=== PATIENT | male | born 1965 | race Caucasian/White ===

== ENCOUNTER 2017-11-30 13:30 | Inpatient (IN) | payer MEDICAID ==
[2017-11-30] MEDS: HYDROCODONE/APAP (5/325) TAB PO (14:37)
[2017-11-30] MEDS: ASPIRIN 81 MG TAB PO (18:09)
[2017-11-30] MEDS: HYDROmorphONE 0.5 MG/0.5 ML SYG IV (18:10)
[2017-11-30 18:28] LABS: ADD MAN DIFF? NO
[2017-11-30 18:30] LABS: BASOPHIL # 0.1 10^3/ul (0.0-0.1); BASOPHILS % 0.5 % (0.0-2.0); EOSINOPHILS # 0.5 10^3/ul (0.0-0.5); EOSINOPHILS % 4.8 % (0.0-7.0); HEMATOCRIT 28.3 % (42.0-52.0); HEMOGLOBIN 9.7 g/dl (14.0-18.0); LYMPHOCYTES # 2.1 10^3/ul (0.8-2.9); LYMPHOCYTES % 19.6 % (15.0-51.0); MEAN CORPUSCULAR HEMOGLOBIN 28.3 pg (29.0-33.0); MEAN CORPUSCULAR HGB CONC 34.3 g/dl (32.0-37.0); MEAN CORPUSCULAR VOLUME 82.5 fl (82.0-101.0); MEAN PLATELET VOLUME 9.4 fl (7.4-10.4); MONOCYTE # 0.7 10^3/ul (0.3-0.9); MONOCYTES % 6.8 % (0.0-11.0); NEUTROPHIL # 7.2 10^3/ul (1.6-7.5); PLATELET COUNT 265 10^3/UL (140-415); RED BLOOD COUNT 3.43 10^6/ul (4.70-6.10); RED CELL DISTRIBUTION WIDTH 13.2 % (11.5-14.5)
[2017-11-30 18:30] LABS: WHITE BLOOD COUNT 10.5 10^3/ul (4.8-10.8)
[2017-11-30 18:47] LABS: ALANINE AMINOTRANSFERASE 17 IU/L (13-69); ALBUMIN 3.5 g/dl (3.3-4.9); ALBUMIN/GLOBULIN RATIO 1.06; ALKALINE PHOSPHATASE 108 IU/L (42-121); ANION GAP 19 (8-16); ASPARTATE AMINO TRANSFERASE 15 IU/L (15-46); BLOOD UREA NITROGEN 39 mg/dl (7-20); CALCIUM 8.6 mg/dl (8.4-10.2); CARBON DIOXIDE 21 mmol/L (21-31); CHLORIDE 103 mmol/L (97-110); CREATININE 3.31 mg/dl (0.61-1.24); GLUCOSE 176 mg/dl (70-220); POTASSIUM 4.9 mmol/L (3.5-5.1); SODIUM 138 mmol/L (135-144); TOTAL PROTEIN 6.8 g/dl (6.1-8.1)
[2017-11-30 19:00] LABS: TROPONIN-I < 0.012 ng/ml (0.00-0.12)
[2017-11-30] MEDS ORDERED: ONDANSETRON 4 MG INJ IV (20:00)
[2017-11-30] MEDS ORDERED: ACETAMINOPHEN 325 MG TAB PO (20:00)
[2017-11-30] MEDS ORDERED: NITROGLYCERIN (SL) 0.4 MG TAB SL (21:00)
[2017-11-30] MEDS ORDERED: NACL 0.9% 3 ML SYG IV (21:00)
[2017-11-30] MEDS: DOCUSATE SODIUM 100 MG CAP PO (22:32)
[2017-11-30] MEDS: morphine 2 MG INJ IV (22:32)
[2017-11-30] MEDS: ENOXAPARIN 30 MG/0.3 ML SYG SC (22:42)
[2017-12-01] MEDS: PREGABALIN 75 MG CAP PO ×6 (00:26→21:06)
[2017-12-01 01:28] LABS: ADD UMIC YES; UR ASCORBIC ACID NEGATIVE (NEGATIVE); UR BILIRUBIN (Dip) NEGATIVE (NEGATIVE); UR BLOOD (Dip) 2+ mg/dL (NEGATIVE); UR CLARITY CLEAR (CLEAR); UR COLOR YELLOW (YELLOW); UR GLUCOSE (Dip) NEGATIVE (NEGATIVE); UR KETONES (Dip) NEGATIVE (NEGATIVE); UR LEUKOCYTE ESTERASE (Dip) NEGATIVE Leu/ul (NEGATIVE); UR NITRITE (Dip) NEGATIVE (NEGATIVE); UR RBC 3 /HPF (0-5); UR SPECIFIC GRAVITY (Dip) 1.011 (1.003-1.030); UR TOTAL PROTEIN (Dip) 2+ mg/dl (NEGATIVE); UR UROBILINOGEN (Dip) NEGATIVE (NEGATIVE); UR WBC 6 /HPF (0-5)
[2017-12-01 01:43] LABS: SODIUM,URINE RANDOM 53 mmol/L (30-90)
[2017-12-01 01:44] LABS: CREATININE,URINE RANDOM 78.05 mg/dl (20-370)
[2017-12-01 01:52] LABS: PROTEIN/CREAT RATIO 3.02 RATIO
[2017-12-01] MEDS: ZOLPIDEM 5 MG TAB PO ×2 (02:13→22:59)
[2017-12-01] MEDS: morphine 2 MG INJ IV ×3 (02:15→21:10)
[2017-12-01 05:44] LABS: ADD MAN DIFF? NO
[2017-12-01 05:50] LABS: BASOPHILS % 0.5 % (0.0-2.0); EOSINOPHILS # 0.4 10^3/ul (0.0-0.5); EOSINOPHILS % 5.3 % (0.0-7.0); HEMATOCRIT 28.3 % (42.0-52.0); HEMOGLOBIN 9.5 g/dl (14.0-18.0); LYMPHOCYTES # 2.1 10^3/ul (0.8-2.9); LYMPHOCYTES % 26.4 % (15.0-51.0); MEAN CORPUSCULAR HEMOGLOBIN 28.1 pg (29.0-33.0); MEAN CORPUSCULAR HGB CONC 33.6 g/dl (32.0-37.0); MEAN CORPUSCULAR VOLUME 83.7 fl (82.0-101.0); MEAN PLATELET VOLUME 9.6 fl (7.4-10.4); MONOCYTE # 0.7 10^3/ul (0.3-0.9); MONOCYTES % 8.2 % (0.0-11.0); NEUTROPHIL # 4.8 10^3/ul (1.6-7.5); NEUTROPHILS % 59.4 % (39.0-77.0); PLATELET COUNT 266 10^3/UL (140-415); RED BLOOD COUNT 3.38 10^6/ul (4.70-6.10); RED CELL DISTRIBUTION WIDTH 13.2 % (11.5-14.5)
[2017-12-01 05:50] LABS: WHITE BLOOD COUNT 8.1 10^3/ul (4.8-10.8)
[2017-12-01 05:59] LABS: HEMOGLOBIN A1C 6.2 % (0-5.9)
[2017-12-01] MEDS: PANTOPRAZOLE (EC) 40 MG TAB PO (06:00)
[2017-12-01] MEDS ORDERED: DIAZEPAM 5 MG TAB PO (06:00)
[2017-12-01 06:09] LABS: ALANINE AMINOTRANSFERASE 21 IU/L (13-69); ALBUMIN 3.4 g/dl (3.3-4.9); ALBUMIN/GLOBULIN RATIO 1.03; ALKALINE PHOSPHATASE 111 IU/L (42-121); ANION GAP 17 (8-16); ASPARTATE AMINO TRANSFERASE 18 IU/L (15-46); BLOOD UREA NITROGEN 38 mg/dl (7-20); CALCIUM 8.3 mg/dl (8.4-10.2); CARBON DIOXIDE 21 mmol/L (21-31); CHLORIDE 105 mmol/L (97-110); CHOL/HDL RATIO 7.2 RATIO; CHOLESTEROL 181 mg/dl (100-200); CREATINE KINASE 200 IU/L (23-200); CREATININE 3.13 mg/dl (0.61-1.24); GLUCOSE 113 mg/dl (70-220); HDL CHOLESTEROL 25 mg/dl (28-71); LDL CHOLESTEROL,CALCULATED 110 mg/dl; MAGNESIUM 1.8 mg/dl (1.7-2.5); POTASSIUM 4.8 mmol/L (3.5-5.1); SODIUM 138 mmol/L (135-144); TOTAL PROTEIN 6.7 g/dl (6.1-8.1); TRIGLYCERIDES 232 mg/dl (0-149)
[2017-12-01 06:21] LABS: CK INDEX 1.2
[2017-12-01 06:22] LABS: TROPONIN-I < 0.012 ng/ml (0.00-0.12)
[2017-12-01] MEDS: CYCLOBENZAPRINE 10 MG TAB PO (06:34)
[2017-12-01] MEDS: IOHEXOL 14.3 MG(I)/ML (ADULT) BTL PO (08:00)
[2017-12-01 08:05] LABS: CREATINE KINASE 177 IU/L (23-200)
[2017-12-01 08:14] LABS: CK INDEX 1.3
[2017-12-01 08:21] LABS: CK-MB 2.31 ng/ml (0.0-2.4); TROPONIN-I < 0.012 ng/ml (0.00-0.12)
[2017-12-01] MEDS: DOCUSATE SODIUM 100 MG CAP PO ×2 (09:56→21:06)
[2017-12-01] MEDS: ASPIRIN 81 MG TAB PO (09:56)
[2017-12-01] MEDS: ENOXAPARIN 30 MG/0.3 ML SYG SC (10:06)
[2017-12-01] MEDS ORDERED: DEXTROSE 50% 50 ML SYRINGE IV ×2 (15:00)
[2017-12-01] MEDS ORDERED: GLUCAGON 1 MG INJ IM (15:00)
[2017-12-01] MEDS ORDERED: GLUCOSE GEL 15 GRAM TUBE BUCCAL (15:00)
[2017-12-01] MEDS ORDERED: GLUCOSE GEL 15 GRAM TUBE PO ×2 (15:00)
[2017-12-01] MEDS: POLYETHYLENE GLYCOL 17 GM PACKET PO (15:08)
[2017-12-01] MEDS: AMLODIPINE 5 MG TAB PO (15:09)
[2017-12-01 16:46] LABS: CREATININE,URINE RANDOM 72.39 mg/dl (20-370)
[2017-12-01] MEDS: INSULIN ASPART [NOVOLOG] 3 ML PEN SC ×2 (17:55→21:00)
[2017-12-01] MEDS: VENLAFAXINE 25 MG TAB PO (21:30)
[2017-12-01] MEDS: ACCU-CHEK XX (23:05)
[2017-12-02] MEDS: PANTOPRAZOLE (EC) 40 MG TAB PO (06:00)
[2017-12-02 07:51] LABS: ANION GAP 16 (8-16); BLOOD UREA NITROGEN 38 mg/dl (7-20); CALCIUM 8.6 mg/dl (8.4-10.2); CARBON DIOXIDE 26 mmol/L (21-31); CHLORIDE 102 mmol/L (97-110); CREATININE 2.77 mg/dl (0.61-1.24); GLUCOSE 130 mg/dl (70-220); POTASSIUM 5.5 mmol/L (3.5-5.1); SODIUM 138 mmol/L (135-144)
[2017-12-02] MEDS: INSULIN ASPART [NOVOLOG] 3 ML PEN SC ×5 (07:55→21:50)
[2017-12-02] MEDS: POLYETHYLENE GLYCOL 17 GM PACKET PO (08:24)
[2017-12-02] MEDS: DOCUSATE SODIUM 100 MG CAP PO ×2 (08:24→20:26)
[2017-12-02] MEDS: AMLODIPINE 5 MG TAB PO (08:26)
[2017-12-02] MEDS: ASPIRIN 81 MG TAB PO (08:26)
[2017-12-02] MEDS: VENLAFAXINE 25 MG TAB PO (08:26)
[2017-12-02] MEDS: PREGABALIN 75 MG CAP PO ×2 (08:28→20:26)
[2017-12-02] MEDS: ENOXAPARIN 30 MG/0.3 ML SYG SC (08:51)
[2017-12-02] MEDS: morphine 2 MG INJ IV ×2 (08:55→23:16)
[2017-12-02] MEDS: ACETAMINOPHEN 325 MG TAB PO (10:42)
[2017-12-02] MEDS: [UNRECOGNIZED DRUG - REMARK] XX ×2 (12:30→20:30)
[2017-12-02] MEDS ORDERED: LORAZEPAM 2 MG INJ IM (12:30)
[2017-12-02 13:29] LABS: POTASSIUM 4.7 mmol/L (3.5-5.1)
[2017-12-02] MEDS: OXYCODONE/ACETAMINOPHEN (10/325) TAB PO (14:11)
[2017-12-03] MEDS: ZOLPIDEM 5 MG TAB PO ×2 (00:13→22:22)
[2017-12-03] MEDS: ACCU-CHEK XX (02:00)
[2017-12-03] MEDS: [UNRECOGNIZED DRUG - REMARK] XX (05:11)
[2017-12-03 06:32] LABS: ADD MAN DIFF? NO
[2017-12-03 06:42] LABS: BASOPHILS % 0.4 % (0.0-2.0); EOSINOPHILS # 0.7 10^3/ul (0.0-0.5); EOSINOPHILS % 10.6 % (0.0-7.0); HEMATOCRIT 28.7 % (42.0-52.0); HEMOGLOBIN 9.8 g/dl (14.0-18.0); LYMPHOCYTES # 1.8 10^3/ul (0.8-2.9); LYMPHOCYTES % 25.4 % (15.0-51.0); MEAN CORPUSCULAR HEMOGLOBIN 28.3 pg (29.0-33.0); MEAN CORPUSCULAR HGB CONC 34.1 g/dl (32.0-37.0); MEAN CORPUSCULAR VOLUME 82.9 fl (82.0-101.0); MONOCYTE # 0.5 10^3/ul (0.3-0.9); MONOCYTES % 7.7 % (0.0-11.0); NEUTROPHIL # 3.9 10^3/ul (1.6-7.5); NEUTROPHILS % 55.8 % (39.0-77.0); PLATELET COUNT 290 10^3/UL (140-415); RED BLOOD COUNT 3.46 10^6/ul (4.70-6.10)
[2017-12-03 07:01] LABS: ALBUMIN 3.5 g/dl (3.3-4.9); ANION GAP 17 (8-16); BLOOD UREA NITROGEN 37 mg/dl (7-20); CALCIUM 8.5 mg/dl (8.4-10.2); CARBON DIOXIDE 22 mmol/L (21-31); CHLORIDE 104 mmol/L (97-110); CREATININE 2.53 mg/dl (0.61-1.24); GLUCOSE 136 mg/dl (70-220); MAGNESIUM 1.7 mg/dl (1.7-2.5); SODIUM 138 mmol/L (135-144)
[2017-12-03] MEDS: INSULIN ASPART [NOVOLOG] 3 ML PEN SC ×4 (07:55→20:11)
[2017-12-03] MEDS: PANTOPRAZOLE (EC) 40 MG TAB PO (10:57)
[2017-12-03] MEDS: ASPIRIN 81 MG TAB PO (10:57)
[2017-12-03] MEDS: POLYETHYLENE GLYCOL 17 GM PACKET PO (10:58)
[2017-12-03] MEDS: PREGABALIN 75 MG CAP PO ×2 (10:58→20:13)
[2017-12-03] MEDS: VENLAFAXINE 25 MG TAB PO (10:58)
[2017-12-03] MEDS: LAMOTRIGINE 100 MG TAB PO ×2 (10:58→20:14)
[2017-12-03] MEDS: AMLODIPINE 5 MG TAB PO (10:59)
[2017-12-03] MEDS: ENOXAPARIN 30 MG/0.3 ML SYG SC (11:02)
[2017-12-03] MEDS: SENNA/DOCUSATE NA (8.6MG/50MG) TAB PO ×3 (11:12→20:14)
[2017-12-03] MEDS: morphine 2 MG INJ IV ×2 (11:18→20:15)
[2017-12-03] MEDS: OXYCODONE/ACETAMINOPHEN (10/325) TAB PO (17:43)
[2017-12-03] MEDS: BISACODYL (EC) 5 MG TAB PO ×2 (17:48→20:14)
[2017-12-03] MEDS: HYDROCORTISONE 1% 28.35 GM OINT TOP (20:15)
[2017-12-04] MEDS: ACCU-CHEK XX (02:00)
[2017-12-04 08:59] LABS: ADD MAN DIFF? NO
[2017-12-04 09:04] LABS: WHITE BLOOD COUNT 7.9 10^3/ul (4.8-10.8)
[2017-12-04 09:04] LABS: BASOPHILS % 0.4 % (0.0-2.0); EOSINOPHILS # 0.6 10^3/ul (0.0-0.5); EOSINOPHILS % 7.8 % (0.0-7.0); HEMATOCRIT 32.1 % (42.0-52.0); HEMOGLOBIN 10.5 g/dl (14.0-18.0); LYMPHOCYTES % 25.5 % (15.0-51.0); MEAN CORPUSCULAR HEMOGLOBIN 27.4 pg (29.0-33.0); MEAN CORPUSCULAR HGB CONC 32.7 g/dl (32.0-37.0); MEAN CORPUSCULAR VOLUME 83.8 fl (82.0-101.0); MEAN PLATELET VOLUME 9.2 fl (7.4-10.4); MONOCYTE # 0.5 10^3/ul (0.3-0.9); MONOCYTES % 6.1 % (0.0-11.0); NEUTROPHIL # 4.8 10^3/ul (1.6-7.5); NEUTROPHILS % 59.9 % (39.0-77.0); PLATELET COUNT 346 10^3/UL (140-415); RED BLOOD COUNT 3.83 10^6/ul (4.70-6.10); RED CELL DISTRIBUTION WIDTH 13.2 % (11.5-14.5)
[2017-12-04] MEDS: POLYETHYLENE GLYCOL 17 GM PACKET PO (09:11)
[2017-12-04] MEDS: VENLAFAXINE 25 MG TAB PO (09:11)
[2017-12-04] MEDS: LAMOTRIGINE 100 MG TAB PO ×2 (09:12→22:19)
[2017-12-04] MEDS: AMLODIPINE 5 MG TAB PO (09:12)
[2017-12-04] MEDS: PANTOPRAZOLE (EC) 40 MG TAB PO (09:13)
[2017-12-04] MEDS: PREGABALIN 75 MG CAP PO ×2 (09:13→22:19)
[2017-12-04] MEDS: morphine 2 MG INJ IV ×3 (09:13→22:56)
[2017-12-04] MEDS: ASPIRIN 81 MG TAB PO (09:13)
[2017-12-04] MEDS: SENNA/DOCUSATE NA (8.6MG/50MG) TAB PO ×2 (09:13→22:19)
[2017-12-04] MEDS: INSULIN ASPART [NOVOLOG] 3 ML PEN SC ×4 (09:20→21:00)
[2017-12-04 09:32] LABS: ALBUMIN 3.8 g/dl (3.3-4.9); ANION GAP 19 (8-16); BLOOD UREA NITROGEN 34 mg/dl (7-20); CALCIUM 9.2 mg/dl (8.4-10.2); CARBON DIOXIDE 25 mmol/L (21-31); CHLORIDE 102 mmol/L (97-110); CREATININE 2.42 mg/dl (0.61-1.24); GLUCOSE 153 mg/dl (70-220); MAGNESIUM 1.6 mg/dl (1.7-2.5); PHOSPHORUS 3.9 mg/dl (2.5-4.9); POTASSIUM 5.2 mmol/L (3.5-5.1); SODIUM 141 mmol/L (135-144)
[2017-12-04] MEDS: ENOXAPARIN 30 MG/0.3 ML SYG SC (09:35)
[2017-12-04] MEDS: OXYCODONE/ACETAMINOPHEN (10/325) TAB PO (11:03)
[2017-12-04] MEDS: LACTULOSE 30ML CUP PO (12:00)
[2017-12-04] MEDS: MINERAL OIL 133 ML ENEMA PR (12:00)
[2017-12-04] MEDS: MAGNESIUM OXIDE 400 MG TAB PO (13:18)
[2017-12-04] MEDS: HEPARIN 5,000 UNIT/0.5 ML VIAL SC ×2 (13:22→22:21)
[2017-12-04 17:12] LABS: CREATININE, RANDOM URINE 93 mg/dL (20-370); MICROALBUMIN 107.4 mg/dL; MICROALBUMIN/CREATININE RATIO 1155 (<30)
[2017-12-04 17:56] LABS: CREATININE, RANDOM URINE 86 mg/dL (20-370); MICROALBUMIN 138.5 mg/dL; MICROALBUMIN/CREATININE RATIO 1610 (<30)
[2017-12-05] MEDS: ZOLPIDEM 5 MG TAB PO (00:34)
[2017-12-05] MEDS: ACCU-CHEK XX (02:00)
[2017-12-05] MEDS: PANTOPRAZOLE (EC) 40 MG TAB PO (06:25)
[2017-12-05] MEDS: HEPARIN 5,000 UNIT/0.5 ML VIAL SC ×3 (06:36→22:57)
[2017-12-05 08:21] LABS: ADD MAN DIFF? NO
[2017-12-05 08:31] LABS: BASOPHILS % 0.5 % (0.0-2.0); EOSINOPHILS # 0.6 10^3/ul (0.0-0.5); EOSINOPHILS % 8.8 % (0.0-7.0); HEMATOCRIT 32.1 % (42.0-52.0); HEMOGLOBIN 10.6 g/dl (14.0-18.0); LYMPHOCYTES # 2.2 10^3/ul (0.8-2.9); LYMPHOCYTES % 29.4 % (15.0-51.0); MEAN CORPUSCULAR VOLUME 84.7 fl (82.0-101.0); MEAN PLATELET VOLUME 8.9 fl (7.4-10.4); MONOCYTE # 0.6 10^3/ul (0.3-0.9); MONOCYTES % 8.1 % (0.0-11.0); NEUTROPHIL # 3.9 10^3/ul (1.6-7.5); NEUTROPHILS % 52.9 % (39.0-77.0); PLATELET COUNT 339 10^3/UL (140-415); RED BLOOD COUNT 3.79 10^6/ul (4.70-6.10); RED CELL DISTRIBUTION WIDTH 13.2 % (11.5-14.5)
[2017-12-05 08:31] LABS: WHITE BLOOD COUNT 7.3 10^3/ul (4.8-10.8)
[2017-12-05] MEDS: INSULIN ASPART [NOVOLOG] 3 ML PEN SC ×4 (08:42→20:40)
[2017-12-05 08:47] LABS: ALBUMIN 3.6 g/dl (3.3-4.9); ANION GAP 15 (8-16); BLOOD UREA NITROGEN 29 mg/dl (7-20); CALCIUM 9.2 mg/dl (8.4-10.2); CARBON DIOXIDE 27 mmol/L (21-31); CHLORIDE 101 mmol/L (97-110); CREATININE 2.52 mg/dl (0.61-1.24); GLUCOSE 150 mg/dl (70-220); MAGNESIUM 1.7 mg/dl (1.7-2.5); PHOSPHORUS 4.5 mg/dl (2.5-4.9); POTASSIUM 5.1 mmol/L (3.5-5.1); SODIUM 138 mmol/L (135-144)
[2017-12-05] MEDS: AMLODIPINE 5 MG TAB PO (08:48)
[2017-12-05] MEDS: SENNA/DOCUSATE NA (8.6MG/50MG) TAB PO ×2 (08:48→20:38)
[2017-12-05] MEDS: ASPIRIN 81 MG TAB PO (08:48)
[2017-12-05] MEDS: VENLAFAXINE 25 MG TAB PO (08:48)
[2017-12-05] MEDS: POLYETHYLENE GLYCOL 17 GM PACKET PO (08:49)
[2017-12-05] MEDS: LAMOTRIGINE 100 MG TAB PO ×2 (08:49→20:38)
[2017-12-05] MEDS: PREGABALIN 75 MG CAP PO ×2 (09:48→20:38)
[2017-12-05] MEDS: morphine 2 MG INJ IV ×2 (09:50→18:29)
[2017-12-05] MEDS: OXYCODONE/ACETAMINOPHEN (10/325) TAB PO ×3 (14:05→20:38)
[2017-12-05 15:51] LABS: ALBUMIN 3.4 g/dL (3.8-4.8); ALPHA-1-GLOBULINS 0.4 g/dL (0.2-0.3); ALPHA-2-GLOBULINS 1.1 g/dL (0.5-0.9); BETA 2 GLOBULINS 0.5 g/dL (0.2-0.5); BETA GLOBULINS 0.4 g/dL (0.4-0.6); GAMMA GLOBULINS 1.2 g/dL (0.8-1.7)
[2017-12-06] MEDS: morphine 2 MG INJ IV ×4 (00:17→20:23)
[2017-12-06] MEDS: ZOLPIDEM 5 MG TAB PO (00:52)
[2017-12-06] MEDS: ACCU-CHEK XX (02:00)
[2017-12-06] MEDS: PANTOPRAZOLE (EC) 40 MG TAB PO (06:48)
[2017-12-06] MEDS: HEPARIN 5,000 UNIT/0.5 ML VIAL SC ×3 (06:58→22:52)
[2017-12-06] MEDS: PREGABALIN 75 MG CAP PO ×2 (08:27→20:34)
[2017-12-06] MEDS: AMLODIPINE 5 MG TAB PO (08:27)
[2017-12-06] MEDS: VENLAFAXINE 25 MG TAB PO ×2 (08:27→20:28)
[2017-12-06] MEDS: POLYETHYLENE GLYCOL 17 GM PACKET PO (08:28)
[2017-12-06] MEDS: SENNA/DOCUSATE NA (8.6MG/50MG) TAB PO ×2 (08:28→20:28)
[2017-12-06] MEDS: ASPIRIN 81 MG TAB PO (08:28)
[2017-12-06] MEDS: LAMOTRIGINE 100 MG TAB PO ×2 (08:28→20:28)
[2017-12-06] MEDS: INSULIN ASPART [NOVOLOG] 3 ML PEN SC ×4 (08:40→20:43)
[2017-12-06 09:52] LABS: ANION GAP 18 (8-16); BLOOD UREA NITROGEN 31 mg/dl (7-20); CARBON DIOXIDE 23 mmol/L (21-31); CHLORIDE 102 mmol/L (97-110); CREATININE 2.49 mg/dl (0.61-1.24); GLUCOSE 175 mg/dl (70-220); MAGNESIUM 1.8 mg/dl (1.7-2.5); PHOSPHORUS 4.4 mg/dl (2.5-4.9); POTASSIUM 4.9 mmol/L (3.5-5.1); SODIUM 138 mmol/L (135-144)
[2017-12-06] MEDS: DICLOFENAC SODIUM 1% GEL 100 GM TUBE TP ×3 (12:51→20:26)
[2017-12-06] MEDS: OXYCODONE/ACETAMINOPHEN (10/325) TAB PO ×2 (17:05→22:44)
[2017-12-07] MEDS: ZOLPIDEM 5 MG TAB PO (00:54)
[2017-12-07] MEDS: morphine 2 MG INJ IV ×4 (00:54→20:00)
[2017-12-07] MEDS: ACCU-CHEK XX (02:00)
[2017-12-07] MEDS: PANTOPRAZOLE (EC) 40 MG TAB PO (06:41)
[2017-12-07] MEDS: HEPARIN 5,000 UNIT/0.5 ML VIAL SC ×3 (06:53→22:08)
[2017-12-07] MEDS: ASPIRIN 81 MG TAB PO (08:09)
[2017-12-07] MEDS: SENNA/DOCUSATE NA (8.6MG/50MG) TAB PO ×2 (08:09→20:03)
[2017-12-07] MEDS: LAMOTRIGINE 100 MG TAB PO ×2 (08:10→20:03)
[2017-12-07] MEDS: VENLAFAXINE 25 MG TAB PO ×2 (08:10→20:01)
[2017-12-07] MEDS: PREGABALIN 75 MG CAP PO ×2 (08:10→20:02)
[2017-12-07] MEDS: DICLOFENAC SODIUM 1% GEL 100 GM TUBE TP ×4 (08:11→20:12)
[2017-12-07] MEDS: AMLODIPINE 5 MG TAB PO (08:11)
[2017-12-07] MEDS: POLYETHYLENE GLYCOL 17 GM PACKET PO (08:11)
[2017-12-07 08:21] LABS: ADD MAN DIFF? NO
[2017-12-07 08:34] LABS: WHITE BLOOD COUNT 8.7 10^3/ul (4.8-10.8)
[2017-12-07 08:34] LABS: BASOPHIL # 0.1 10^3/ul (0.0-0.1); BASOPHILS % 0.6 % (0.0-2.0); EOSINOPHILS # 0.6 10^3/ul (0.0-0.5); EOSINOPHILS % 6.3 % (0.0-7.0); HEMATOCRIT 29.9 % (42.0-52.0); LYMPHOCYTES # 2.3 10^3/ul (0.8-2.9); LYMPHOCYTES % 26.6 % (15.0-51.0); MEAN CORPUSCULAR HGB CONC 33.4 g/dl (32.0-37.0); MEAN CORPUSCULAR VOLUME 83.8 fl (82.0-101.0); MEAN PLATELET VOLUME 9.1 fl (7.4-10.4); MONOCYTE # 0.7 10^3/ul (0.3-0.9); MONOCYTES % 8.2 % (0.0-11.0); NEUTROPHIL # 5.1 10^3/ul (1.6-7.5); NEUTROPHILS % 58.1 % (39.0-77.0); PLATELET COUNT 311 10^3/UL (140-415); RED BLOOD COUNT 3.57 10^6/ul (4.70-6.10)
[2017-12-07] MEDS: INSULIN ASPART [NOVOLOG] 3 ML PEN SC ×5 (08:44→20:05)
[2017-12-07 08:56] LABS: ANION GAP 13 (8-16); BLOOD UREA NITROGEN 30 mg/dl (7-20); CARBON DIOXIDE 25 mmol/L (21-31); CHLORIDE 100 mmol/L (97-110); CREATININE 2.46 mg/dl (0.61-1.24); GLUCOSE 144 mg/dl (70-220); MAGNESIUM 1.6 mg/dl (1.7-2.5); PHOSPHORUS 4.9 mg/dl (2.5-4.9); POTASSIUM 4.4 mmol/L (3.5-5.1); SODIUM 134 mmol/L (135-144)
[2017-12-07] MEDS: OXYCODONE/ACETAMINOPHEN (10/325) TAB PO ×3 (11:20→23:10)
[2017-12-07 14:37] LABS: CREATININE, RANDOM URINE 44 mg/dL (20-370); PROTEIN/CREATININE RATIO 3955 mg/g creat (22-128)
[2017-12-08] MEDS: morphine 2 MG INJ IV ×3 (00:13→16:53)
[2017-12-08] MEDS: INSULIN ASPART [NOVOLOG] 3 ML PEN SC ×5 (01:17→20:36)
[2017-12-08] MEDS: ACCU-CHEK XX (01:17)
[2017-12-08] MEDS: ZOLPIDEM 5 MG TAB PO ×2 (02:33→23:22)
[2017-12-08] MEDS: PANTOPRAZOLE (EC) 40 MG TAB PO (05:36)
[2017-12-08] MEDS: HEPARIN 5,000 UNIT/0.5 ML VIAL SC ×3 (05:38→21:01)
[2017-12-08] MEDS: POLYETHYLENE GLYCOL 17 GM PACKET PO ×2 (08:14→15:41)
[2017-12-08] MEDS: ASPIRIN 81 MG TAB PO (08:14)
[2017-12-08] MEDS: SENNA/DOCUSATE NA (8.6MG/50MG) TAB PO ×2 (08:14→20:34)
[2017-12-08] MEDS: VENLAFAXINE 25 MG TAB PO ×2 (08:15→20:34)
[2017-12-08] MEDS: LAMOTRIGINE 100 MG TAB PO ×2 (08:15→20:33)
[2017-12-08] MEDS: DICLOFENAC SODIUM 1% GEL 100 GM TUBE TP ×4 (08:15→20:40)
[2017-12-08] MEDS: AMLODIPINE 5 MG TAB PO (08:16)
[2017-12-08] MEDS: PREGABALIN 75 MG CAP PO ×2 (08:20→20:34)
[2017-12-08 13:32] LABS: HAAIG REFLEX REFLEX FILED
[2017-12-08 14:05] LABS: COMPLEMENT C3 134 mg/dl (88-165); COMPLEMENT C4 49 mg/dl (14-44)
[2017-12-08 14:27] LABS: HEPATITIS B SURFACE ANTIGEN NEGATIVE (NEGATIVE)
[2017-12-08] MEDS: OXYCODONE/ACETAMINOPHEN (10/325) TAB PO ×2 (14:35→19:14)
[2017-12-08 14:45] LABS: HEPATITIS B CORE ANTIBODY NEGATIVE (NEGATIVE); HEPATITIS C VIRAL ANTIBODY NEGATIVE (NEGATIVE)
[2017-12-08 15:02] LABS: RHEUMATOID FACTOR NEGATIVE (NEGATIVE)
[2017-12-09] MEDS: ACCU-CHEK XX (00:36)
[2017-12-09] MEDS: morphine 2 MG INJ IV ×5 (03:46→21:27)
[2017-12-09] MEDS: PANTOPRAZOLE (EC) 40 MG TAB PO (05:33)
[2017-12-09] MEDS: HEPARIN 5,000 UNIT/0.5 ML VIAL SC ×3 (05:34→21:32)
[2017-12-09] MEDS: PREGABALIN 75 MG CAP PO ×2 (08:07→21:26)
[2017-12-09] MEDS: ASPIRIN 81 MG TAB PO (08:07)
[2017-12-09] MEDS: LAMOTRIGINE 100 MG TAB PO ×2 (08:07→21:26)
[2017-12-09] MEDS: SENNA/DOCUSATE NA (8.6MG/50MG) TAB PO ×2 (08:07→21:27)
[2017-12-09] MEDS: AMLODIPINE 5 MG TAB PO (08:08)
[2017-12-09] MEDS: POLYETHYLENE GLYCOL 17 GM PACKET PO (08:08)
[2017-12-09] MEDS: DICLOFENAC SODIUM 1% GEL 100 GM TUBE TP ×4 (08:08→21:32)
[2017-12-09] MEDS: VENLAFAXINE 25 MG TAB PO ×2 (08:08→21:27)
[2017-12-09] MEDS: INSULIN ASPART [NOVOLOG] 3 ML PEN SC ×4 (08:16→21:43)
[2017-12-09] MEDS: OXYCODONE/ACETAMINOPHEN (10/325) TAB PO ×4 (11:55→23:32)
[2017-12-09 23:20] LABS: ADD MAN DIFF? NO
[2017-12-09 23:22] LABS: WHITE BLOOD COUNT 8.3 10^3/ul (4.8-10.8)
[2017-12-09 23:22] LABS: BASOPHIL # 0.1 10^3/ul (0.0-0.1); BASOPHILS % 0.6 % (0.0-2.0); EOSINOPHILS # 0.4 10^3/ul (0.0-0.5); EOSINOPHILS % 4.5 % (0.0-7.0); HEMATOCRIT 26.9 % (42.0-52.0); HEMOGLOBIN 8.9 g/dl (14.0-18.0); LYMPHOCYTES # 2.2 10^3/ul (0.8-2.9); LYMPHOCYTES % 26.1 % (15.0-51.0); MEAN CORPUSCULAR HEMOGLOBIN 28.3 pg (29.0-33.0); MEAN CORPUSCULAR HGB CONC 33.1 g/dl (32.0-37.0); MEAN CORPUSCULAR VOLUME 85.4 fl (82.0-101.0); MEAN PLATELET VOLUME 8.7 fl (7.4-10.4); MONOCYTE # 0.6 10^3/ul (0.3-0.9); MONOCYTES % 6.9 % (0.0-11.0); NEUTROPHIL # 5.1 10^3/ul (1.6-7.5); NEUTROPHILS % 61.7 % (39.0-77.0); PLATELET COUNT 282 10^3/UL (140-415); RED BLOOD COUNT 3.15 10^6/ul (4.70-6.10); RED CELL DISTRIBUTION WIDTH 13.2 % (11.5-14.5)
[2017-12-09 23:42] LABS: ANION GAP 14 (8-16); BLOOD UREA NITROGEN 32 mg/dl (7-20); CALCIUM 8.2 mg/dl (8.4-10.2); CARBON DIOXIDE 21 mmol/L (21-31); CHLORIDE 106 mmol/L (97-110); CREATININE 2.72 mg/dl (0.61-1.24); GLUCOSE 198 mg/dl (70-220); MAGNESIUM 1.6 mg/dl (1.7-2.5); PHOSPHORUS 4.3 mg/dl (2.5-4.9); POTASSIUM 5.1 mmol/L (3.5-5.1); SODIUM 136 mmol/L (135-144)
[2017-12-10] MEDS: ZOLPIDEM 5 MG TAB PO ×2 (01:27→23:02)
[2017-12-10] MEDS: morphine 2 MG INJ IV ×6 (01:28→23:02)
[2017-12-10] MEDS: ACCU-CHEK XX (01:41)
[2017-12-10] MEDS: PANTOPRAZOLE (EC) 40 MG TAB PO (06:07)
[2017-12-10] MEDS: HEPARIN 5,000 UNIT/0.5 ML VIAL SC ×3 (06:07→23:12)
[2017-12-10] MEDS: VENLAFAXINE 25 MG TAB PO ×2 (08:26→20:35)
[2017-12-10] MEDS: ASPIRIN 81 MG TAB PO (08:27)
[2017-12-10] MEDS: SENNA/DOCUSATE NA (8.6MG/50MG) TAB PO ×2 (08:27→20:35)
[2017-12-10] MEDS: AMLODIPINE 5 MG TAB PO (08:28)
[2017-12-10] MEDS: LAMOTRIGINE 100 MG TAB PO ×2 (08:28→20:36)
[2017-12-10] MEDS: POLYETHYLENE GLYCOL 17 GM PACKET PO (08:29)
[2017-12-10] MEDS: DICLOFENAC SODIUM 1% GEL 100 GM TUBE TP ×4 (08:29→20:36)
[2017-12-10] MEDS: INSULIN ASPART [NOVOLOG] 3 ML PEN SC ×4 (08:37→20:41)
[2017-12-10] MEDS: PREGABALIN 75 MG CAP PO ×2 (08:41→20:36)
[2017-12-10] MEDS: OXYCODONE/ACETAMINOPHEN (10/325) TAB PO ×2 (13:20→20:35)
[2017-12-11] MEDS: ACCU-CHEK XX (02:00)
[2017-12-11] MEDS: PANTOPRAZOLE (EC) 40 MG TAB PO (05:36)
[2017-12-11 05:43] LABS: ADD MAN DIFF? NO
[2017-12-11 05:45] LABS: WHITE BLOOD COUNT 9.3 10^3/ul (4.8-10.8)
[2017-12-11 05:45] LABS: BASOPHILS % 0.4 % (0.0-2.0); EOSINOPHILS # 0.8 10^3/ul (0.0-0.5); HEMATOCRIT 28.8 % (42.0-52.0); HEMOGLOBIN 9.6 g/dl (14.0-18.0); LYMPHOCYTES # 2.2 10^3/ul (0.8-2.9); LYMPHOCYTES % 23.7 % (15.0-51.0); MEAN CORPUSCULAR HEMOGLOBIN 28.1 pg (29.0-33.0); MEAN CORPUSCULAR HGB CONC 33.3 g/dl (32.0-37.0); MEAN CORPUSCULAR VOLUME 84.2 fl (82.0-101.0); MEAN PLATELET VOLUME 8.9 fl (7.4-10.4); MONOCYTE # 0.7 10^3/ul (0.3-0.9); MONOCYTES % 7.6 % (0.0-11.0); NEUTROPHIL # 5.6 10^3/ul (1.6-7.5); NEUTROPHILS % 59.9 % (39.0-77.0); PLATELET COUNT 287 10^3/UL (140-415); RED BLOOD COUNT 3.42 10^6/ul (4.70-6.10); RED CELL DISTRIBUTION WIDTH 13.2 % (11.5-14.5)
[2017-12-11] MEDS: HEPARIN 5,000 UNIT/0.5 ML VIAL SC ×3 (05:47→21:47)
[2017-12-11] MEDS: BISACODYL (EC) 5 MG TAB PO (05:49)
[2017-12-11 06:26] LABS: ANION GAP 12 (8-16); BLOOD UREA NITROGEN 31 mg/dl (7-20); CALCIUM 9.1 mg/dl (8.4-10.2); CARBON DIOXIDE 26 mmol/L (21-31); CHLORIDE 107 mmol/L (97-110); CREATININE 2.48 mg/dl (0.61-1.24); GLUCOSE 126 mg/dl (70-220); MAGNESIUM 1.8 mg/dl (1.7-2.5); PHOSPHORUS 4.3 mg/dl (2.5-4.9); SODIUM 139 mmol/L (135-144)
[2017-12-11 06:29] LABS: POTASSIUM 6.4 mmol/L (3.5-5.1)
[2017-12-11] MEDS: morphine 2 MG INJ IV ×5 (07:02→19:43)
[2017-12-11] MEDS: NA POLYST SULFON 15 GM/60 ML BTL PO ×2 (07:02→09:28)
[2017-12-11] MEDS: INSULIN ASPART [NOVOLOG] 3 ML PEN SC ×4 (07:52→21:00)
[2017-12-11] MEDS: SENNA/DOCUSATE NA (8.6MG/50MG) TAB PO ×2 (08:29→21:40)
[2017-12-11] MEDS: VENLAFAXINE 25 MG TAB PO ×2 (08:29→21:40)
[2017-12-11] MEDS: LAMOTRIGINE 100 MG TAB PO ×2 (08:30→21:40)
[2017-12-11] MEDS: POLYETHYLENE GLYCOL 17 GM PACKET PO (08:30)
[2017-12-11] MEDS: ASPIRIN 81 MG TAB PO (08:30)
[2017-12-11] MEDS: PREGABALIN 75 MG CAP PO ×2 (08:30→21:40)
[2017-12-11] MEDS: OXYCODONE/ACETAMINOPHEN (10/325) TAB PO ×3 (08:31→21:51)
[2017-12-11] MEDS: AMLODIPINE 5 MG TAB PO (08:31)
[2017-12-11] MEDS: DICLOFENAC SODIUM 1% GEL 100 GM TUBE TP ×4 (08:32→21:00)
[2017-12-11 08:33] LABS: POTASSIUM 6.5 mmol/L (3.5-5.1)
[2017-12-11] MEDS: CALCIUM GLUCONATE 10% 1 GM in DEXTROSE 5% 100 ML IVPB (10:58)
[2017-12-11 19:31] LABS: ANA SCREEN NEGATIVE (NEGATIVE)
[2017-12-12] MEDS: ZOLPIDEM 5 MG TAB PO (00:14)
[2017-12-12] MEDS: morphine 2 MG INJ IV ×5 (00:14→20:16)
[2017-12-12] MEDS: ACCU-CHEK XX (02:00)
[2017-12-12] MEDS: PANTOPRAZOLE (EC) 40 MG TAB PO (05:59)
[2017-12-12] MEDS: HEPARIN 5,000 UNIT/0.5 ML VIAL SC ×3 (06:02→22:14)
[2017-12-12] MEDS: INSULIN ASPART [NOVOLOG] 3 ML PEN SC ×4 (07:49→20:30)
[2017-12-12] MEDS: POLYETHYLENE GLYCOL 17 GM PACKET PO (08:18)
[2017-12-12] MEDS: SENNA/DOCUSATE NA (8.6MG/50MG) TAB PO ×2 (08:19→20:17)
[2017-12-12] MEDS: VENLAFAXINE 25 MG TAB PO ×2 (08:19→20:22)
[2017-12-12] MEDS: ASPIRIN 81 MG TAB PO (08:19)
[2017-12-12] MEDS: BISACODYL (EC) 5 MG TAB PO (08:19)
[2017-12-12] MEDS: AMLODIPINE 5 MG TAB PO (08:20)
[2017-12-12] MEDS: LAMOTRIGINE 100 MG TAB PO ×2 (08:20→20:22)
[2017-12-12] MEDS: DICLOFENAC SODIUM 1% GEL 100 GM TUBE TP ×4 (08:22→20:23)
[2017-12-12] MEDS: PREGABALIN 75 MG CAP PO ×2 (08:23→20:22)
[2017-12-12] MEDS: OXYCODONE/ACETAMINOPHEN (10/325) TAB PO ×3 (10:13→23:28)
[2017-12-12 10:32] LABS: ADD MAN DIFF? NO
[2017-12-12 10:38] LABS: BASOPHILS % 0.6 % (0.0-2.0); EOSINOPHILS # 0.5 10^3/ul (0.0-0.5); EOSINOPHILS % 7.9 % (0.0-7.0); HEMATOCRIT 29.6 % (42.0-52.0); HEMOGLOBIN 9.9 g/dl (14.0-18.0); LYMPHOCYTES # 1.4 10^3/ul (0.8-2.9); LYMPHOCYTES % 22.3 % (15.0-51.0); MEAN CORPUSCULAR HGB CONC 33.4 g/dl (32.0-37.0); MEAN CORPUSCULAR VOLUME 83.6 fl (82.0-101.0); MEAN PLATELET VOLUME 8.7 fl (7.4-10.4); MONOCYTE # 0.4 10^3/ul (0.3-0.9); MONOCYTES % 6.3 % (0.0-11.0); NEUTROPHILS % 62.6 % (39.0-77.0); PLATELET COUNT 303 10^3/UL (140-415); RED BLOOD COUNT 3.54 10^6/ul (4.70-6.10)
[2017-12-12 10:38] LABS: WHITE BLOOD COUNT 6.3 10^3/ul (4.8-10.8)
[2017-12-12 11:55] LABS: ANION GAP 17 (8-16); BLOOD UREA NITROGEN 30 mg/dl (7-20); CALCIUM 9.1 mg/dl (8.4-10.2); CARBON DIOXIDE 26 mmol/L (21-31); CHLORIDE 99 mmol/L (97-110); CREATININE 2.54 mg/dl (0.61-1.24); GLUCOSE 169 mg/dl (70-220); MAGNESIUM 1.8 mg/dl (1.7-2.5); PHOSPHORUS 4.8 mg/dl (2.5-4.9); POTASSIUM 5.7 mmol/L (3.5-5.1); SODIUM 136 mmol/L (135-144)
[2017-12-12 13:42] LABS: POTASSIUM 6.1 mmol/L (3.5-5.1)
[2017-12-12 14:12] LABS: ANCA SCREEN NEGATIVE (NEGATIVE)
[2017-12-12] MEDS ORDERED: DEXTROSE 50% 50 ML SYRINGE IV (15:00)
[2017-12-12] MEDS: SOD CHLORIDE 0.9% 500 ML IV (15:25)
[2017-12-12] MEDS: FUROSEMIDE 40 MG INJ IV (15:27)
[2017-12-12 15:41] LABS: ANTI-DNA (DOUBLE STRANDED) 1740 U/mL (< 301)
[2017-12-12 16:26] LABS: MYELOPEROXIDASE ANTIBODY <1.0 AI; PROTEINASE-3 ANTIBODY <1.0 AI
[2017-12-12] MEDS: INSULIN REGULAR, HUMAN 100 UNIT/1 ML 3ML VIAL IVP (17:22)
[2017-12-12 19:28] LABS: ANION GAP 16 (8-16); BLOOD UREA NITROGEN 29 mg/dl (7-20); CARBON DIOXIDE 27 mmol/L (21-31); CHLORIDE 97 mmol/L (97-110); CREATININE 2.53 mg/dl (0.61-1.24); GLUCOSE 91 mg/dl (70-220); POTASSIUM 4.9 mmol/L (3.5-5.1); SODIUM 135 mmol/L (135-144)
[2017-12-13] MEDS: morphine 2 MG INJ IV ×6 (00:21→23:40)
[2017-12-13] MEDS: ZOLPIDEM 5 MG TAB PO (00:22)
[2017-12-13] MEDS: ACCU-CHEK XX (01:47)
[2017-12-13] MEDS: PANTOPRAZOLE (EC) 40 MG TAB PO (06:39)
[2017-12-13] MEDS: HEPARIN 5,000 UNIT/0.5 ML VIAL SC ×3 (06:48→21:25)
[2017-12-13] MEDS: INSULIN ASPART [NOVOLOG] 3 ML PEN SC ×4 (07:55→21:25)
[2017-12-13 08:20] LABS: ADD MAN DIFF? NO
[2017-12-13 08:25] LABS: BASOPHILS % 0.4 % (0.0-2.0); EOSINOPHILS # 0.6 10^3/ul (0.0-0.5); EOSINOPHILS % 8.6 % (0.0-7.0); HEMATOCRIT 27.5 % (42.0-52.0); HEMOGLOBIN 9.3 g/dl (14.0-18.0); LYMPHOCYTES # 2.2 10^3/ul (0.8-2.9); LYMPHOCYTES % 31.7 % (15.0-51.0); MEAN CORPUSCULAR HEMOGLOBIN 28.1 pg (29.0-33.0); MEAN CORPUSCULAR HGB CONC 33.8 g/dl (32.0-37.0); MEAN CORPUSCULAR VOLUME 83.1 fl (82.0-101.0); MEAN PLATELET VOLUME 9.1 fl (7.4-10.4); MONOCYTE # 0.5 10^3/ul (0.3-0.9); MONOCYTES % 6.6 % (0.0-11.0); NEUTROPHIL # 3.7 10^3/ul (1.6-7.5); NEUTROPHILS % 52.3 % (39.0-77.0); PLATELET COUNT 289 10^3/UL (140-415); RED BLOOD COUNT 3.31 10^6/ul (4.70-6.10); RED CELL DISTRIBUTION WIDTH 13.1 % (11.5-14.5)
[2017-12-13 08:25] LABS: WHITE BLOOD COUNT 7.1 10^3/ul (4.8-10.8)
[2017-12-13 08:46] LABS: ANION GAP 17 (8-16); BLOOD UREA NITROGEN 35 mg/dl (7-20); CALCIUM 8.3 mg/dl (8.4-10.2); CARBON DIOXIDE 23 mmol/L (21-31); CHLORIDE 103 mmol/L (97-110); CREATININE 2.48 mg/dl (0.61-1.24); GLUCOSE 112 mg/dl (70-220); MAGNESIUM 1.7 mg/dl (1.7-2.5); PHOSPHORUS 6.1 mg/dl (2.5-4.9); POTASSIUM 4.9 mmol/L (3.5-5.1); SODIUM 138 mmol/L (135-144)
[2017-12-13] MEDS: DICLOFENAC SODIUM 1% GEL 100 GM TUBE TP ×4 (08:56→21:20)
[2017-12-13] MEDS: VENLAFAXINE 25 MG TAB PO ×2 (09:00→21:20)
[2017-12-13] MEDS: SENNA/DOCUSATE NA (8.6MG/50MG) TAB PO ×2 (09:00→21:19)
[2017-12-13] MEDS: ASPIRIN 81 MG TAB PO (09:01)
[2017-12-13] MEDS: LAMOTRIGINE 100 MG TAB PO ×2 (09:01→21:20)
[2017-12-13] MEDS: PREGABALIN 75 MG CAP PO ×2 (09:01→21:20)
[2017-12-13] MEDS: AMLODIPINE 5 MG TAB PO (09:01)
[2017-12-13] MEDS: OXYCODONE/ACETAMINOPHEN (10/325) TAB PO (09:14)
[2017-12-13] MEDS: POLYETHYLENE GLYCOL 17 GM PACKET PO (09:17)
[2017-12-13] MEDS: oxyCODONE 5 MG TAB PO ×3 (13:27→22:42)
[2017-12-13] MEDS: BETAMETHASONE DIPROPIONATE TOP (21:21)
[2017-12-13] MEDS: CALCIPOTRIENE TOP (21:21)
[2017-12-14] MEDS: ZOLPIDEM 5 MG TAB PO (00:52)
[2017-12-14] MEDS: ACCU-CHEK XX (01:10)
[2017-12-14] MEDS: PANTOPRAZOLE (EC) 40 MG TAB PO (05:28)
[2017-12-14] MEDS: HEPARIN 5,000 UNIT/0.5 ML VIAL SC ×3 (05:30→21:23)
[2017-12-14 07:12] LABS: ANION GAP 16 (8-16); BLOOD UREA NITROGEN 33 mg/dl (7-20); CALCIUM 8.7 mg/dl (8.4-10.2); CARBON DIOXIDE 25 mmol/L (21-31); CHLORIDE 100 mmol/L (97-110); CREATININE 2.88 mg/dl (0.61-1.24); GLUCOSE 168 mg/dl (70-220); MAGNESIUM 1.7 mg/dl (1.7-2.5); PHOSPHORUS 6.1 mg/dl (2.5-4.9); POTASSIUM 4.8 mmol/L (3.5-5.1); SODIUM 136 mmol/L (135-144)
[2017-12-14] MEDS: morphine 2 MG INJ IV ×4 (07:52→21:25)
[2017-12-14] MEDS: INSULIN ASPART [NOVOLOG] 3 ML PEN SC ×4 (07:55→20:09)
[2017-12-14] MEDS: POLYETHYLENE GLYCOL 17 GM PACKET PO (08:30)
[2017-12-14] MEDS: ASPIRIN 81 MG TAB PO (08:31)
[2017-12-14] MEDS: SENNA/DOCUSATE NA (8.6MG/50MG) TAB PO ×2 (08:31→20:08)
[2017-12-14] MEDS: VENLAFAXINE 25 MG TAB PO ×2 (08:32→20:09)
[2017-12-14] MEDS: PREGABALIN 75 MG CAP PO ×2 (08:32→20:08)
[2017-12-14] MEDS: LAMOTRIGINE 100 MG TAB PO ×2 (08:33→20:08)
[2017-12-14] MEDS: BETAMETHASONE DIPROPIONATE TOP ×2 (08:33→20:10)
[2017-12-14] MEDS: AMLODIPINE 5 MG TAB PO (08:33)
[2017-12-14] MEDS: CALCIPOTRIENE TOP ×2 (08:33→20:10)
[2017-12-14] MEDS: DICLOFENAC SODIUM 1% GEL 100 GM TUBE TP ×4 (08:33→20:10)
[2017-12-14] MEDS: oxyCODONE 5 MG TAB PO ×3 (10:05→19:17)
[2017-12-14] MEDS: SEVELAMER 400 MG TAB PO ×2 (12:38→17:28)
[2017-12-15] MEDS: oxyCODONE 5 MG TAB PO ×5 (00:10→21:28)
[2017-12-15] MEDS: ZOLPIDEM 5 MG TAB PO (00:46)
[2017-12-15] MEDS: ACCU-CHEK XX (01:54)
[2017-12-15] MEDS: PANTOPRAZOLE (EC) 40 MG TAB PO (06:10)
[2017-12-15] MEDS: HEPARIN 5,000 UNIT/0.5 ML VIAL SC ×3 (06:12→21:25)
[2017-12-15] MEDS: morphine 2 MG INJ IV ×4 (06:14→23:39)
[2017-12-15] MEDS: INSULIN ASPART [NOVOLOG] 3 ML PEN SC ×4 (08:17→21:00)
[2017-12-15] MEDS: VENLAFAXINE 25 MG TAB PO ×2 (08:18→21:22)
[2017-12-15] MEDS: PREGABALIN 75 MG CAP PO ×2 (08:18→21:22)
[2017-12-15] MEDS: ASPIRIN 81 MG TAB PO (08:18)
[2017-12-15] MEDS: POLYETHYLENE GLYCOL 17 GM PACKET PO (08:18)
[2017-12-15] MEDS: SEVELAMER 400 MG TAB PO ×3 (08:18→17:21)
[2017-12-15] MEDS: AMLODIPINE 5 MG TAB PO (08:19)
[2017-12-15] MEDS: LAMOTRIGINE 100 MG TAB PO ×2 (08:19→21:22)
[2017-12-15] MEDS: SENNA/DOCUSATE NA (8.6MG/50MG) TAB PO ×2 (08:19→21:22)
[2017-12-15] MEDS: CALCIPOTRIENE TOP ×2 (08:20→21:23)
[2017-12-15] MEDS: DICLOFENAC SODIUM 1% GEL 100 GM TUBE TP ×4 (08:20→21:23)
[2017-12-15] MEDS: BETAMETHASONE DIPROPIONATE TOP ×2 (08:20→21:23)
[2017-12-15] MEDS: ONDANSETRON 4 MG INJ IV (11:00)
[2017-12-15] MEDS: LACTULOSE 30ML CUP PO (12:44)
[2017-12-16] MEDS: ZOLPIDEM 5 MG TAB PO (00:20)
[2017-12-16] MEDS: ACCU-CHEK XX (01:34)
[2017-12-16] MEDS: HEPARIN 5,000 UNIT/0.5 ML VIAL SC ×3 (06:00→21:32)
[2017-12-16] MEDS: morphine 2 MG INJ IV ×4 (06:29→21:48)
[2017-12-16] MEDS: PANTOPRAZOLE (EC) 40 MG TAB PO (06:30)
[2017-12-16] MEDS: ASPIRIN 81 MG TAB PO (08:14)
[2017-12-16] MEDS: SEVELAMER 400 MG TAB PO ×3 (08:14→17:26)
[2017-12-16] MEDS: SENNA/DOCUSATE NA (8.6MG/50MG) TAB PO ×2 (08:16→20:52)
[2017-12-16] MEDS: LAMOTRIGINE 100 MG TAB PO ×2 (08:16→20:52)
[2017-12-16] MEDS: AMLODIPINE 5 MG TAB PO (08:18)
[2017-12-16] MEDS: INSULIN ASPART [NOVOLOG] 3 ML PEN SC ×4 (08:33→20:57)
[2017-12-16] MEDS: PREGABALIN 75 MG CAP PO ×2 (08:35→20:52)
[2017-12-16] MEDS: POLYETHYLENE GLYCOL 17 GM PACKET PO (08:36)
[2017-12-16] MEDS: oxyCODONE 5 MG TAB PO ×3 (08:37→19:02)
[2017-12-16] MEDS: BETAMETHASONE DIPROPIONATE TOP ×2 (09:00→12:34)
[2017-12-16] MEDS: VENLAFAXINE 25 MG TAB PO ×3 (09:00→20:55)
[2017-12-16] MEDS: CALCIPOTRIENE TOP ×2 (09:00→12:34)
[2017-12-16] MEDS: DICLOFENAC SODIUM 1% GEL 100 GM TUBE TP ×4 (09:00→20:54)
[2017-12-16] MEDS: BISACODYL (EC) 5 MG TAB PO (17:26)
[2017-12-16] MEDS: LACTULOSE 30ML CUP PO (20:51)
[2017-12-16] MEDS: MINERAL OIL 133 ML ENEMA PR (20:59)
[2017-12-16 22:20] LABS: ANION GAP 13 (8-16); BLOOD UREA NITROGEN 31 mg/dl (7-20); CALCIUM 8.3 mg/dl (8.4-10.2); CARBON DIOXIDE 22 mmol/L (21-31); CHLORIDE 103 mmol/L (97-110); CREATININE 2.52 mg/dl (0.61-1.24); GLUCOSE 140 mg/dl (70-220); MAGNESIUM 1.7 mg/dl (1.7-2.5); POTASSIUM 5.3 mmol/L (3.5-5.1); SODIUM 133 mmol/L (135-144)
[2017-12-17] MEDS: ZOLPIDEM 5 MG TAB PO (00:11)
[2017-12-17] MEDS: morphine 2 MG INJ IV ×4 (01:48→21:19)
[2017-12-17] MEDS: ACCU-CHEK XX (01:51)
[2017-12-17] MEDS: HEPARIN 5,000 UNIT/0.5 ML VIAL SC ×3 (06:32→21:35)
[2017-12-17] MEDS: VENLAFAXINE 25 MG TAB PO ×2 (08:34→21:19)
[2017-12-17] MEDS: SEVELAMER 400 MG TAB PO ×4 (08:34→18:29)
[2017-12-17] MEDS: POLYETHYLENE GLYCOL 17 GM PACKET PO ×2 (08:35→11:38)
[2017-12-17] MEDS: SENNA/DOCUSATE NA (8.6MG/50MG) TAB PO ×2 (08:35→21:19)
[2017-12-17] MEDS: LACTULOSE 30ML CUP PO ×2 (08:36→21:19)
[2017-12-17] MEDS: ASPIRIN 81 MG TAB PO (08:36)
[2017-12-17] MEDS: LAMOTRIGINE 100 MG TAB PO ×2 (08:37→21:19)
[2017-12-17] MEDS: BISACODYL (EC) 5 MG TAB PO ×2 (08:37→11:38)
[2017-12-17] MEDS: PREGABALIN 75 MG CAP PO ×2 (08:38→21:19)
[2017-12-17] MEDS: INSULIN ASPART [NOVOLOG] 3 ML PEN SC ×4 (08:41→18:31)
[2017-12-17] MEDS: AMLODIPINE 5 MG TAB PO (08:44)
[2017-12-17] MEDS: oxyCODONE 5 MG TAB PO ×3 (08:48→23:14)
[2017-12-17] MEDS: CALCIPOTRIENE TOP ×2 (09:00→11:46)
[2017-12-17] MEDS: DICLOFENAC SODIUM 1% GEL 100 GM TUBE TP ×4 (09:00→21:20)
[2017-12-17] MEDS: BETAMETHASONE DIPROPIONATE TOP ×2 (09:00→11:46)
[2017-12-17 12:28] LABS: ANION GAP 11 (8-16); BLOOD UREA NITROGEN 31 mg/dl (7-20); CALCIUM 8.7 mg/dl (8.4-10.2); CARBON DIOXIDE 24 mmol/L (21-31); CHLORIDE 109 mmol/L (97-110); GLUCOSE 137 mg/dl (70-220); POTASSIUM 5.3 mmol/L (3.5-5.1); SODIUM 139 mmol/L (135-144)
[2017-12-17] MEDS: NA PHOSPHATE/BIPHOS 133 ML ENEMA PR (16:30)
[2017-12-17] MEDS: PEG/ELECTROLYTES 4L BTL PO (16:35)
[2017-12-17] MEDS: CEPASTAT LOZENGE MT (23:14)
[2017-12-18] MEDS: ZOLPIDEM 5 MG TAB PO ×2 (01:12→23:24)
[2017-12-18] MEDS: ACCU-CHEK XX (02:00)
[2017-12-18 06:00] LABS: ADD MAN DIFF? NO
[2017-12-18 06:18] LABS: WHITE BLOOD COUNT 6.4 10^3/ul (4.8-10.8)
[2017-12-18 06:18] LABS: BASOPHILS % 0.6 % (0.0-2.0); EOSINOPHILS # 0.5 10^3/ul (0.0-0.5); EOSINOPHILS % 7.2 % (0.0-7.0); HEMATOCRIT 29.5 % (42.0-52.0); HEMOGLOBIN 9.8 g/dl (14.0-18.0); LYMPHOCYTES # 1.8 10^3/ul (0.8-2.9); LYMPHOCYTES % 27.6 % (15.0-51.0); MEAN CORPUSCULAR HEMOGLOBIN 28.4 pg (29.0-33.0); MEAN CORPUSCULAR HGB CONC 33.2 g/dl (32.0-37.0); MEAN CORPUSCULAR VOLUME 85.5 fl (82.0-101.0); MONOCYTE # 0.8 10^3/ul (0.3-0.9); NEUTROPHIL # 3.4 10^3/ul (1.6-7.5); NEUTROPHILS % 52.3 % (39.0-77.0); PLATELET COUNT 255 10^3/UL (140-415); RED BLOOD COUNT 3.45 10^6/ul (4.70-6.10); RED CELL DISTRIBUTION WIDTH 13.5 % (11.5-14.5)
[2017-12-18] MEDS: HEPARIN 5,000 UNIT/0.5 ML VIAL SC ×3 (06:24→21:03)
[2017-12-18 06:45] LABS: ANION GAP 15 (8-16); BLOOD UREA NITROGEN 28 mg/dl (7-20); CALCIUM 8.9 mg/dl (8.4-10.2); CARBON DIOXIDE 25 mmol/L (21-31); CHLORIDE 106 mmol/L (97-110); CREATININE 2.34 mg/dl (0.61-1.24); GLUCOSE 121 mg/dl (70-220); MAGNESIUM 1.9 mg/dl (1.7-2.5); PHOSPHORUS 4.2 mg/dl (2.5-4.9); SODIUM 141 mmol/L (135-144)
[2017-12-18] MEDS: INSULIN ASPART [NOVOLOG] 3 ML PEN SC ×4 (08:15→21:03)
[2017-12-18] MEDS: SENNA/DOCUSATE NA (8.6MG/50MG) TAB PO ×2 (10:06→21:04)
[2017-12-18] MEDS: VENLAFAXINE 25 MG TAB PO ×2 (10:07→22:03)
[2017-12-18] MEDS: SEVELAMER 400 MG TAB PO ×2 (10:07→17:52)
[2017-12-18] MEDS: PREGABALIN 75 MG CAP PO ×2 (10:07→21:04)
[2017-12-18] MEDS: LAMOTRIGINE 100 MG TAB PO ×2 (10:07→21:04)
[2017-12-18] MEDS: BISACODYL (EC) 5 MG TAB PO ×2 (10:07→15:46)
[2017-12-18] MEDS: AMLODIPINE 5 MG TAB PO (10:08)
[2017-12-18] MEDS: POLYETHYLENE GLYCOL 17 GM PACKET PO (10:08)
[2017-12-18] MEDS: ASPIRIN 81 MG TAB PO (10:08)
[2017-12-18] MEDS: DICLOFENAC SODIUM 1% GEL 100 GM TUBE TP ×4 (10:09→21:07)
[2017-12-18] MEDS: CALCIPOTRIENE TOP ×2 (10:11→21:07)
[2017-12-18] MEDS: BETAMETHASONE DIPROPIONATE TOP ×2 (10:11→21:07)
[2017-12-18] MEDS: morphine 2 MG INJ IV (10:25)
[2017-12-18] MEDS: oxyCODONE 5 MG TAB PO ×2 (13:01→21:07)
[2017-12-18] MEDS: LEVOFLOXACIN 750MG/D5W (PMX) 150 ML IVPB (13:01)
[2017-12-18] MEDS: NA PHOSPHATE/BIPHOS 133 ML ENEMA PR (15:46)
[2017-12-19] MEDS: morphine 2 MG INJ IV ×4 (01:02→18:37)
[2017-12-19] MEDS: ACCU-CHEK XX (01:52)
[2017-12-19] MEDS: HEPARIN 5,000 UNIT/0.5 ML VIAL SC ×2 (05:29→14:00)
[2017-12-19 05:59] LABS: ADD MAN DIFF? NO
[2017-12-19 06:03] LABS: WHITE BLOOD COUNT 4.5 10^3/ul (4.8-10.8)
[2017-12-19 06:03] LABS: BASOPHILS % 0.4 % (0.0-2.0); EOSINOPHILS # 0.3 10^3/ul (0.0-0.5); EOSINOPHILS % 5.9 % (0.0-7.0); HEMATOCRIT 25.6 % (42.0-52.0); HEMOGLOBIN 8.5 g/dl (14.0-18.0); LYMPHOCYTES # 1.4 10^3/ul (0.8-2.9); LYMPHOCYTES % 31.5 % (15.0-51.0); MEAN CORPUSCULAR HEMOGLOBIN 28.1 pg (29.0-33.0); MEAN CORPUSCULAR HGB CONC 33.2 g/dl (32.0-37.0); MEAN CORPUSCULAR VOLUME 84.5 fl (82.0-101.0); MONOCYTE # 0.7 10^3/ul (0.3-0.9); MONOCYTES % 16.3 % (0.0-11.0); NEUTROPHIL # 2.1 10^3/ul (1.6-7.5); NEUTROPHILS % 45.7 % (39.0-77.0); PLATELET COUNT 218 10^3/UL (140-415); RED BLOOD COUNT 3.03 10^6/ul (4.70-6.10); RED CELL DISTRIBUTION WIDTH 13.4 % (11.5-14.5)
[2017-12-19 06:31] LABS: ALANINE AMINOTRANSFERASE 18 IU/L (13-69); ALBUMIN 2.9 g/dl (3.3-4.9); ALBUMIN/GLOBULIN RATIO 0.96; ALKALINE PHOSPHATASE 91 IU/L (42-121); ANION GAP 13 (8-16); ASPARTATE AMINO TRANSFERASE 11 IU/L (15-46); BLOOD UREA NITROGEN 27 mg/dl (7-20); CALCIUM 8.3 mg/dl (8.4-10.2); CARBON DIOXIDE 25 mmol/L (21-31); CHLORIDE 102 mmol/L (97-110); CREATININE 2.16 mg/dl (0.61-1.24); GLUCOSE 118 mg/dl (70-220); POTASSIUM 4.9 mmol/L (3.5-5.1); SODIUM 135 mmol/L (135-144); TOTAL PROTEIN 5.9 g/dl (6.1-8.1)
[2017-12-19 06:53] LABS: MAGNESIUM 1.6 mg/dl (1.7-2.5)
[2017-12-19] MEDS: INSULIN ASPART [NOVOLOG] 3 ML PEN SC ×3 (07:49→17:38)
[2017-12-19] MEDS: POLYETHYLENE GLYCOL 17 GM PACKET PO (09:27)
[2017-12-19] MEDS: SENNA/DOCUSATE NA (8.6MG/50MG) TAB PO (09:27)
[2017-12-19] MEDS: VENLAFAXINE 25 MG TAB PO (09:27)
[2017-12-19] MEDS: BETAMETHASONE DIPROPIONATE TOP (09:28)
[2017-12-19] MEDS: AMLODIPINE 5 MG TAB PO ×2 (09:28→12:16)
[2017-12-19] MEDS: PREGABALIN 75 MG CAP PO (09:28)
[2017-12-19] MEDS: CALCIPOTRIENE TOP (09:28)
[2017-12-19] MEDS: SEVELAMER 400 MG TAB PO ×2 (09:28→12:11)
[2017-12-19] MEDS: LAMOTRIGINE 100 MG TAB PO (09:28)
[2017-12-19] MEDS: ASPIRIN 81 MG TAB PO (09:29)
[2017-12-19] MEDS: DICLOFENAC SODIUM 1% GEL 100 GM TUBE TP ×2 (09:29→14:10)
[2017-12-19] MEDS: BISACODYL (EC) 5 MG TAB PO (09:36)
[2017-12-19] MEDS ORDERED: LIDOCAINE 5% PATCH TD (12:00)
[2017-12-19] MEDS: oxyCODONE 5 MG TAB PO ×2 (12:11→16:35)
[2017-12-19] MEDS: MAGNESIUM SULFATE 1 GM/D5W 100 ML IVPB (12:12)
[2017-12-20] MEDS ORDERED: AMLODIPINE 5 MG TAB PO (09:00)
[2017-12-20] MEDS ORDERED: LEVOFLOXACIN 750 MG TABLET PO (12:00)
== END 2017-12-19 18:50 | DRG 683 ==
LOC: MS2 12-07 17:32 → TEL 12-11 10:05 → MS2 12-08 21:54 → E/R 13:30 → TEL 19:41
PROVIDERS: Family Medicine
DX: N17.9 Acute kidney failure, unspecified (principal); Z68.42 Body mass index [BMI] 45.0-49.9, adult; F33.2 Major depressive disorder, recurrent severe without psychotic features; R07.89 Other chest pain; E11.22 Type 2 diabetes mellitus with diabetic chronic kidney disease; I12.9 Hypertensive chronic kidney disease with stage 1 through stage 4 chronic kidney disease, or unspecified chronic kidney disease; N18.9 Chronic kidney disease, unspecified; E66.01 Morbid (severe) obesity due to excess calories; M75.100 Unspecified rotator cuff tear or rupture of unspecified shoulder, not specified as traumatic; S49.91XA Unspecified injury of right shoulder and upper arm, initial encounter; W05.0XXA Fall from non-moving wheelchair, initial encounter; Y92.009 Unspecified place in unspecified non-institutional (private) residence as the place of occurrence of the external cause; M75.102 Unspecified rotator cuff tear or rupture of left shoulder, not specified as traumatic; M75.101 Unspecified rotator cuff tear or rupture of right shoulder, not specified as traumatic; K59.00 Constipation, unspecified; K21.9 Gastro-esophageal reflux disease without esophagitis; K42.9 Umbilical hernia without obstruction or gangrene; Z89.612 Acquired absence of left leg above knee; Z89.511 Acquired absence of right leg below knee; M25.511 Pain in right shoulder; E87.5 Hyperkalemia; Z91.11 Patient's noncompliance with dietary regimen; R50.9 Fever, unspecified; J06.9 Acute upper respiratory infection, unspecified; R51 Headache
CPT/HCPCS: 36415; 70450; 71045; 71100; 72125; 72170; 73030-RT; 73221; 74018; 74176; 76705; 76775; 80048; 80053; 80061; 80069; 81001; 81003; 82043; 82550; 82553; 82570; 82595; 82962; 83036; 83735; 84100; 84132; 84155; 84156; 84165; 84166; 84300; 84443; 84484; 85025; 86021; 86038; 86160; 86226; 86320; 86325; 86430; 86704; 86709; 86803; 87070; 87340; 87880; 93005; 93306; 96374; 97110; 97161; 97163; 97165; 97530; 99285-25

== ENCOUNTER 2018-08-28 13:57 | Observation (INO) | payer BC, MEDICAID ==
[2018-08-28 15:56] LABS: ADD MAN DIFF? NO
[2018-08-28 16:01] LABS: BASOPHILS % 0.7 % (0.0-2.0); EOSINOPHILS # 0.4 10^3/ul (0.0-0.5); HEMATOCRIT 27.7 % (42.0-52.0); LYMPHOCYTES # 1.4 10^3/ul (0.8-2.9); LYMPHOCYTES % 22.5 % (15.0-51.0); MEAN CORPUSCULAR HEMOGLOBIN 27.4 pg (29.0-33.0); MEAN CORPUSCULAR HGB CONC 32.5 g/dl (32.0-37.0); MEAN CORPUSCULAR VOLUME 84.2 fl (82.0-101.0); MEAN PLATELET VOLUME 9.3 fl (7.4-10.4); MONOCYTE # 0.6 10^3/ul (0.3-0.9); MONOCYTES % 9.2 % (0.0-11.0); NEUTROPHIL # 3.7 10^3/ul (1.6-7.5); NEUTROPHILS % 61.3 % (39.0-77.0); PLATELET COUNT 235 10^3/UL (140-415); RED BLOOD COUNT 3.29 10^6/ul (4.70-6.10); RED CELL DISTRIBUTION WIDTH 14.5 % (11.5-14.5)
[2018-08-28 16:05] LABS: INR 1.06; PARTIAL THROMBOPLASTIN TIME 32.1 Sec (23.0-35.0); PROTIME 13.9 Sec (11.9-14.9); PT RATIO 1.1
[2018-08-28 16:10] LABS: ALBUMIN 3.9 g/dl (3.3-4.9); ALBUMIN/GLOBULIN RATIO 1.11; ALKALINE PHOSPHATASE 62 IU/L (42-121); ANION GAP 11 (5-13); ASPARTATE AMINO TRANSFERASE 18 IU/L (15-46); BLOOD UREA NITROGEN 50 mg/dl (7-20); CALCIUM 8.6 mg/dl (8.4-10.2); CARBON DIOXIDE 20 mmol/L (21-31); CHLORIDE 102 mmol/L (97-110); CREATININE 3.72 mg/dl (0.61-1.24); Estimated GFR 17 mL/min (>60); GLUCOSE 203 mg/dl (70-220); LIPASE 108 U/L (23-300); POTASSIUM 5.5 mmol/L (3.5-5.1); SODIUM 133 mmol/L (135-144); TOTAL PROTEIN 7.4 g/dl (6.1-8.1)
[2018-08-28 16:16] LABS: ALANINE AMINOTRANSFERASE < 6 IU/L (13-69)
[2018-08-28 16:21] LABS: TROPONIN-I < 0.012 ng/ml (0.000-0.120)
[2018-08-28] MEDS: ALBUTEROL 0.5% (NEB) 2.5 MG/0.5 ML AMP INH (17:37)
[2018-08-28] MEDS: ASPIRIN 81 MG TAB PO (19:07)
[2018-08-28] MEDS: NA POLYST SULFON 15 GM/60 ML BTL PO (19:07)
[2018-08-28] MEDS ORDERED: NITROGLYCERIN (SL) 0.4 MG TAB SL (20:30)
[2018-08-28] MEDS ORDERED: BISACODYL 10 MG SUPP PR (20:30)
[2018-08-28] MEDS ORDERED: DOCUSATE SODIUM 100 MG CAP PO (20:30)
[2018-08-28] MEDS ORDERED: ONDANSETRON 4 MG INJ IV (20:30)
[2018-08-28] MEDS ORDERED: NACL 0.9% 3 ML SYG IV (20:30)
[2018-08-28] MEDS ORDERED: MAGNESIUM HYDROXIDE 30ML CUP PO (20:30)
[2018-08-28] MEDS ORDERED: ACETAMINOPHEN 325 MG TAB PO (20:30)
[2018-08-28] MEDS: SOD CHLORIDE 0.9% 1,000 ML IV (20:51)
[2018-08-28] MEDS: traZODone 50 MG TAB PO (21:58)
[2018-08-28] MEDS: HEPARIN 5,000 UNIT/1 ML VIAL SC (22:04)
[2018-08-28] MEDS: LAMOTRIGINE 100 MG TAB PO (23:32)
[2018-08-28] MEDS: HYDROCODONE/APAP (5/325) TAB PO (23:36)
[2018-08-28] MEDS: PREGABALIN 75 MG CAP PO (23:50)
[2018-08-29 05:57] LABS: ADD MAN DIFF? NO
[2018-08-29 06:03] LABS: BASOPHILS % 0.7 % (0.0-2.0); EOSINOPHILS # 0.4 10^3/ul (0.0-0.5); EOSINOPHILS % 7.6 % (0.0-7.0); HEMATOCRIT 24.5 % (42.0-52.0); HEMOGLOBIN 8.1 g/dl (14.0-18.0); LYMPHOCYTES # 1.9 10^3/ul (0.8-2.9); LYMPHOCYTES % 35.1 % (15.0-51.0); MEAN CORPUSCULAR HEMOGLOBIN 27.7 pg (29.0-33.0); MEAN CORPUSCULAR HGB CONC 33.1 g/dl (32.0-37.0); MEAN CORPUSCULAR VOLUME 83.9 fl (82.0-101.0); MONOCYTE # 0.5 10^3/ul (0.3-0.9); MONOCYTES % 9.2 % (0.0-11.0); NEUTROPHIL # 2.6 10^3/ul (1.6-7.5); PLATELET COUNT 206 10^3/UL (140-415); RED BLOOD COUNT 2.92 10^6/ul (4.70-6.10); RED CELL DISTRIBUTION WIDTH 14.6 % (11.5-14.5)
[2018-08-29 06:03] LABS: WHITE BLOOD COUNT 5.5 10^3/ul (4.8-10.8)
[2018-08-29] MEDS: SOD CHLORIDE 0.9% 1,000 ML IV (06:10)
[2018-08-29 06:50] LABS: CK-MB 1.78 ng/ml (0.0-2.4); TROPONIN-I < 0.012 ng/ml (0.000-0.120)
[2018-08-29 06:51] LABS: ANION GAP 15 (5-13); BLOOD UREA NITROGEN 52 mg/dl (7-20); CALCIUM 7.8 mg/dl (8.4-10.2); CARBON DIOXIDE 21 mmol/L (21-31); CHLORIDE 101 mmol/L (97-110); CHOLESTEROL 176 mg/dl (100-200); CREATININE 3.58 mg/dl (0.61-1.24); Estimated GFR 18 mL/min (>60); GLUCOSE 111 mg/dl (70-220); HDL CHOLESTEROL 29 mg/dl (28-71); LDL CHOLESTEROL,CALCULATED 112 mg/dl; MAGNESIUM 2.2 mg/dl (1.7-2.5); POTASSIUM 4.6 mmol/L (3.5-5.1); SODIUM 137 mmol/L (135-144); TRIGLYCERIDES 176 mg/dl (0-149)
[2018-08-29 06:55] LABS: CK INDEX 1.8; CREATINE KINASE 99 IU/L (23-200)
[2018-08-29] MEDS: SEVELAMER 800 MG TAB PO (07:55)
[2018-08-29] MEDS: POLYETHYLENE GLYCOL 17 GM PACKET PO (09:00)
[2018-08-29] MEDS: LAMOTRIGINE 100 MG TAB PO (09:19)
[2018-08-29] MEDS: PREGABALIN 75 MG CAP PO (09:19)
[2018-08-29] MEDS: ASPIRIN 81 MG TAB PO (09:19)
[2018-08-29] MEDS: HEPARIN 5,000 UNIT/1 ML VIAL SC (09:23)
[2018-08-29] MEDS: REGADENOSON 0.4 MG/5 ML SYG (12:11)
[2018-08-29] MEDS: HYDROCODONE/APAP (5/325) TAB PO (17:43)
[2018-08-29] MEDS: RENAGEL PO (17:44)
[2018-08-30] MEDS ORDERED: INFLUENZA VIRUS VACCINE 0.5 ML (DISPENSING) IM* (10:00)
== END 2018-08-29 18:15 ==
LOC: E/R 13:57 → TEL 18:58
DX: R07.89 Other chest pain (principal); I12.9 Hypertensive chronic kidney disease with stage 1 through stage 4 chronic kidney disease, or unspecified chronic kidney disease; E11.22 Type 2 diabetes mellitus with diabetic chronic kidney disease; N18.4 Chronic kidney disease, stage 4 (severe); N17.9 Acute kidney failure, unspecified; E87.5 Hyperkalemia; R51 Headache; G89.29 Other chronic pain; M25.519 Pain in unspecified shoulder; R53.1 Weakness; F32.9 Major depressive disorder, single episode, unspecified; Z89.512 Acquired absence of left leg below knee; Z89.511 Acquired absence of right leg below knee; D63.8 Anemia in other chronic diseases classified elsewhere; Z79.4 Long term (current) use of insulin; Z79.82 Long term (current) use of aspirin
CPT/HCPCS: 36415; 70450; 71045; 72141; 78452; 80048; 80053; 80061; 82550; 82553; 83690; 83735; 84484; 85025; 85610; 85730; 87081; 93017; 93306; 94664; 99285-25; G0378